=== PATIENT | female | born 1975 | race Caucasian/White ===

== ENCOUNTER 2022-07-08 13:38 | Outpatient (CLI) | payer MEDICAID, SELFPAY ==
--- NOTE | 2022-07-08 13:30 | CRLHL7_ITS ---
For Patients: As a result of the Century Cures Act, medical imaging exams and procedure reports are released immediately into your electronic medical record. You may view this report before your referring provider. If you have questions, please contact your health care provider. INDICATION: PELVIC PAIN SINCE IUD INSERT COMPARISON: none TECHNIQUE: 2D mata scale and color Doppler images were acquired of the pelvis using a transabdominal and transvaginal approach. Power Doppler evaluation of both ovaries is performed. FINDINGS: Sonographic images demonstrate a normal size and smooth outer contour of the uterus. Uterus measures 7.6 cm in length by 3.6 cm in AP diameter by 5.3 cm in transverse dimension. The myometrium has a normal uniform echotexture. The endometrial lining appears slightly heterogeneous and measures 5 mm in composite thickness. Intrauterine device is in good position as demonstrated on the 3D reconstructed image, . The right ovary measures 3.7 x 1.7 x 2.1 cm in size and the left ovary measures 3.0 x 1.8 x 1.8 cm. The ovaries demonstrate normal arterial and venous blood flow on color Doppler analysis. Normal power Doppler evaluation of both ovaries. No torsion. Small hemorrhagic cysts are present bilaterally. There are no suspicious fluid collections within the cul-de-sac. IMPRESSION: IUD in good position within the endometrial canal. No uterine fibroid. No ovarian torsion. No excess pelvic free fluid. Dictated by Tray Croft MD @ 07/09/2022 10:26:39 AM (Electronically Signed)
== END 2022-07-08 13:39 | disposition home or self-care (01) ==
PROVIDERS: Visit Provider Obstetrics & Gynecology
DX: R10.2 Pelvic and perineal pain (principal)
CPT/HCPCS: 76830; 76856; 93976